=== PATIENT | male | born 1950 | race Caucasian/White ===

== ENCOUNTER 2021-09-27 12:58 | Outpatient (REF) | payer MEDICARE, SELFPAY ==
[2021-09-27 14:45] LABS: Hematocrit 40.3 % (42.0-52.0); Hemoglobin 12.8 g/dl (14.0-18.0); Mean Corpuscular HGB Conc 31.8 g/dl (31.0-36.0); Mean Corpuscular Hemoglobin 29.4 pg (27.0-33.0); Mean Corpuscular Volume 92.4 fL (80.0-98.0); Mean Platelet Volume 11.1 fL (9.4-12.4); Platelet Count 278 X10*3/uL (160-400); Red Blood Count 4.36 X10*6/uL (4.60-5.80); Red Cell Distribution Width 14.3 % (11.0-16.0); White Blood Count 7.6 X10*3/uL (4.8-10.8)
[2021-09-27 15:02] LABS: Prothrombin Time 10.9 SEC (9.9-13.0)
[2021-09-27 15:05] LABS: Anion Gap 12 (12-20); Blood Urea Nitrogen 18 mg/dL (9-16); Carbon Dioxide 25 mmol/L (22-29); Chloride 109 mmol/L (96-108); Estimated Glomerular Filt Rate > 60; Glucose Random 154 mg/dL (60-115); Potassium 4.7 mmol/L (3.3-5.1); Sodium 141 mmol/L (135-145)
== END 2021-09-27 12:59 | disposition home or self-care (01) ==
LOC: HO.LAB 12:58
PROVIDERS: Visit Provider Internal Medicine Cardiovascular Disease
DX: I20.8 Other forms of angina pectoris (principal)
CPT/HCPCS: 36415; 80048; 85027; 85610; 93005; 99202

== ENCOUNTER → 2021-09-28 11:23 | Outpatient (REF) | payer MEDICARE, SELFPAY ==
--- NOTE | 2021-09-28 11:27 | CA_ITS ---
Transthoracic Echocardiogram Patient (Last, First, Middle): Clyde Chahal C Gender: Male Date of : 1950 Age: 71 Procedure Date: 09/28/2021 Procedure Type: Transthoracic Echocardiogram Location: OP Height: 165.1 cm Weight: 90.72 kg BSA: 1.98 m2 Heart Rate: bpm BP: 128 / 80 mmHg Senior Specialist: Referring MD: Thomas Calles MD [employer] Member: Erci Augustin MD Symptoms: I20.8 - Other forms of angina pectoris Study Quality: Fair ECG Rhythm: Sinus Conclusions: - 1. Mildly reduced LV systolic function with LVEF of 45-50% with underlying regional wall motion abnormality in the RCA territory with impaired relaxation filling pattern with mild LVH 2. Mildly dilated left atrium 3. Normal cardiac valvular Doppler 4. Normal RV systolic pressure 5. No pericardial effusion Findings Left Ventricle Normal left ventricular cavity size. There is mildly increased left ventricular wall thickness. The left ventricular systolic function is mildly decreased. The visually estimated ejection fraction is between 45-50%. Spectral Doppler is indicative of an impaired relaxation filling pattern. Elevated left ventricular end diastolic pressure. E/E prime ratio is between 8 and 15 consistent with indeterminate filling pressures. Wall Motion Rest Echo Findings The mid inferoseptal segment is hypokinetic. The basal inferior and basal inferoseptal segments are akinetic. All other scored wall segments showed normal motion. Right Ventricle Normal right ventricular cavity size and systolic function. Atria The left atrium is mildly dilated. Interatrial shunt cannot be excluded. The right atrium is likely dilated. Aortic Valve There is mild calcification of the aortic valve. There is no aortic valve stenosis. There is no aortic valve regurgitation. Mitral Valve There is mild anterior and posterior mitral leaflet thickening. There is no mitral valve stenosis. Pulmonic Valve The pulmonic valve was not well visualized. Tricuspid Valve Normal tricuspid valve structure. There is trace tricuspid valve regurgitation. There is no evidence of pulmonary hypertension. Great Vessels All visible segments of the aorta are normal in size. The pulmonary artery was not well visualized. Venous The inferior vena cava is normal in size and collapses greater than 50% with inspiration. Pericardium/Pleural There is no evidence of pericardial effusion. Prior Study Comparison No prior study available for comparison. Measurements 2D Linear Measurements IVSd: 1.26 0.6-0.9/0.6-1.0 cm LVIDd: 4.75 3.9-5.3/4.2-5.9 cm LVIDd Index: 2.40 2.4-3.2/2.2-3.1 cm/m2 LVIDs: 3.01 2.0-3.6 cm LVPWd: 1.25 0.7-1.1 cm Ao Root: 3.60 2.1-3.5 cm LA Diam: 4.30 2.7-3.8/3.0-4.0 cm LAIDs Index: 2.17 1.5-2.3 cm/m2 LV Mass: 286.50 67-162/88-224 g LV Mass Index: 144.70 43-95/49-115 g/m2 LVOT Diam: 2.30 3.0+(-)1.3 cm 2D Systolic Function EF 4C: 47.50 >55% EF 2C: 47.50 >55% EF BiP: 47.20 >55% Mitral Valve MV Pk E: 0.87 MV PK A: 0.84 MV Decel Time: 189.00 E/A: 1.00 E'Lateral: 9.25 E'Medial: 8.81 E/E' Med: 9.90 E/E' Lat: 9.40 PHT: 55.00 MVA PHT: 4.00 Decel [place]: 4.61 Aortic Valve AoV Pk Michael: 1.71 AoV Mn Michael: 1.01 AoV VTI: 0.34 AoV Pk Grad: 12.00 Aov Mn Grad: 5.00 KRISTI Cont.VTI: 2.57 LVOT LVOT Pk Michael: 1.01 LVOT Mn Michael: 0.68 LVOT VTI: 0.21 LVOT Pk Grad: 4.00 LVOT Mn Grad: 2.00 LVOT Diam: 2.30 LVOT Area: 4.15 Diastolic Function MV Pk E: 0.87 MV Pk A: 0.84 E/A: 1.00 E'Medial: 8.81 E/E' Med: 9.90 E' Laterial: 9.25 E/E' Lat: 9.40 Tricuspid Valve TR Pk Michael: 1.70 TR Pk Grad: 12.00 RA Press: 3.00 RVSP: 15.00 Great Vessels Aorta Ao Root-2D: 3.60 2.0-3.7 cm Ao Asc: 3.50 2.1-3.4 cm Pulmonary Valve PV Pk Michael: 1.33 Peak PV Grad: 7.00 Updated in Other Vendor System with Status of Final Eric Augustin MD electronically signed on 09/29/2021 12:38:38 PM with status of Final
== END ==
LOC: HO.CARD 11:23
PROVIDERS: Visit Provider Internal Medicine Cardiovascular Disease
DX: I20.8 Other forms of angina pectoris (principal)
CPT/HCPCS: 93306

== ENCOUNTER → 2021-10-29 15:25 | Outpatient (BNVA) | payer MEDICARE, SELFPAY | PROVIDERS: Visit Provider Internal Medicine Cardiovascular Disease | DX: I20.8 Other forms of angina pectoris (principal) | CPT/HCPCS: 99212 ==

== ENCOUNTER → 2021-12-31 15:10 | Outpatient (BNVA) | payer MEDICARE, SELFPAY | PROVIDERS: Visit Provider Internal Medicine Cardiovascular Disease | DX: Z48.812 Encounter for surgical aftercare following surgery on the circulatory system (principal); I20.8 Other forms of angina pectoris; Z95.1 Presence of aortocoronary bypass graft; Z98.890 Other specified postprocedural states | CPT/HCPCS: 93005; 99212 ==

== ENCOUNTER 2022-09-02 13:08 | Outpatient (REF) | payer MEDICARE, SELFPAY ==
--- NOTE | ~2022-09-02 | US_ITS ---
EXAMINATION: US EXTRACRANIAL CAROTID DUPLEX, BILATERAL CLINICAL INFORMATION: Status post endarterectomy. COMPARISON: None TECHNIQUE: Real-time ultrasound and Doppler techniques (integrating B-mode 2-D vascular images, Doppler spectral analysis and color-flow Doppler imaging) were utilized to interrogate the extracranial carotid arteries, the vertebral arteries and proximal subclavian arteries bilaterally. The degree of stenosis is determined by criteria similar to NASCET. FINDINGS: RIGHT SIDE: 1. There is severe atherosclerotic plaque seen in the bifurcation/proximal ICA region. 2. The common carotid artery PSV proximally is 101 cm/s and distally 62 cm/s. 3. The proximal internal carotid artery is occluded. 4. The proximal external carotid artery PSV is 150 cm/s. 5. The vertebral artery shows antegrade flow. 6. The subclavian artery waveforms are normal. LEFT SIDE: 1. There is no atherosclerotic plaque seen in the bifurcation/proximal ICA region. 2. The common carotid artery PSV proximally is 93 cm/s and distally 121 cm/s. 3. The proximal internal carotid artery velocities are 97 cm/s systolic and 25 cm/s diastolic. 4. The proximal external carotid artery PSV is 128 cm/s. 5. The vertebral artery shows antegrade flow. 6. The subclavian artery waveforms are normal. US/US carotid duplex BI IMPRESSION: 1. 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 2. LEFT: The left ICA status post endarterectomy appears unremarkable with no significant stenosis seen (0-49%).
== END 2022-09-02 13:09 | disposition home or self-care (01) ==
LOC: HO.US 13:08
PROVIDERS: Visit Provider Internal Medicine Cardiovascular Disease
DX: I65.23 Occlusion and stenosis of bilateral carotid arteries (principal); I20.8 Other forms of angina pectoris; Z95.1 Presence of aortocoronary bypass graft; Z98.890 Other specified postprocedural states
CPT/HCPCS: 93005; 93880; 99212

== ENCOUNTER 2023-03-03 14:43 | Outpatient (AMB) | payer MEDICARE, SELFPAY ==
[2023-03-03 14:47] VITALS: BP 138/72; PULSE 74; O2SAT 89; BMI 35.4
--- NOTE | 2023-03-03 14:47 | A.OFFVIS_ITS ---
Intake Vital Signs 03/03/23 14:47 Height 5 ft 5 in Weight 212 lb 8.41 oz BMI 35.4 BP 138/72 Blood Pressure Location Rt brachial Position Sitting Pulse 74 Pulse Source Pulse Oximeter Pulse Oximetry (%) 89 L Oxygen Delivery Method Room Air Intake Visit Reasons: 6 mth fu after carotid ul Allergies No Known Allergies Allergy (Verified 03/03/23 14:49) Medication List - Last Reconciled 03/03/23 by Thomas Calles MD albuterol sulfate 90 mcg/actuation (Ventolin HFA) 2 puffs PO Q4H PRN amlodipine 5 mg PO DAILY aspirin (Adult Low Dose Aspirin) 81 mg PO DAILY atorvastatin 80 mg PO DAILY budesonide-formoterol 80-4.5 mcg/actuation (Symbicort) 2 puffs inhalation BID clopidogrel 75 mg PO DAILY escitalopram oxalate 5 mg PO DAILY furosemide 40 mg PO BID gabapentin 0 mg PO insulin glargine U-300 conc (Toujeo SoloStar U-300 Insulin) 180 units subcut BEDTIME insulin lispro (Humalog U-100 Insulin) 1 sliding scale dose subcut USEASDIRECTD magnesium oxide 1 tab AM, 2 tabs PM PO daily; metformin ER 500 mg PO DAILY metoprolol tartrate 25 mg PO BID multivitamin 1 tab PO DAILY nitroglycerin 0.4 mg sublingual ONCE omega [id number] oil 1,000 mg (120 mg-180 mg) (Fish Oil) 1 cap PO BID omeprazole 20 mg PO DAILY tiotropium bromide 2.5 mcg/actuation (Spiriva Respimat) 1 puff inhalation DAILY HPI HPI Comments History of Present Illness Details 72-year-old gentleman here for follow-up. He is status post bypass surgery performed on 12/05/[address] Mae. He had DOOLEY to LAD, great saphenous vein graft to om 1 and great saphenous vein graft to right acute marginal. Left carotid endarterectomy with patch angioplasty was also performed by Dr. Gonzalez at the same time. He has been doing well since then. He has no exertional chest discomfort shortness of breath. He has not been physically active and he has gained some weight. Blood pressure control is good. No bleeding concerns. Taking medications regularly. He saw Dr. Gonzalez in the office for carotid surveillance after endarterectomy. He was advised to have repeat ultrasound in 6 months and to follow up with us from here onward. 03/03/2023: He has been doing well on follow-up. He has no chest discomfort shortness of breath. He had carotid ultrasound performed at [facility] in December 2022 showing known occlusion of the right internal carotid artery. Left-sided was status post endarterectomy with stable velocities. His main complaint is peripheral neuropathy. It appears he is taking gabapentin right now. He is saying that this limits him along with lower back pain. His denying any cardiovascular symptoms otherwise. He had cholesterol testing done at [facility] in [place]. He will get the results sent to us. [facility] Surgical History H/O endarterectomy History of cardiac cath History of cataract surgery S/P CABG x 3 Family History Mother CAD (coronary artery disease) Alzheimer disease Father CAD (coronary artery disease) Diabetes Stroke Brother CAD (coronary artery disease) Myocarditis Sister CAD (coronary artery disease) Hyperthyroidism Social History Alcohol intake: never Patient Tobacco Use Status: Former Tobacco user Quit Date: 2011 Years Smoked: 35 +/- 2 packs a day e-Cigarette/Vaping Use: Currently Using Physical Exam Vital Signs: Last Vital Signs Pulse 74 03/03/23 14:47 BP 138/72 03/03/23 14:47 Pulse Ox 89 L 03/03/23 14:47 Oxygen Delivery Method Room Air 03/03/23 14:47 BMI result Body Mass Index 35.4 GENERAL APPEARANCE: in no acute distress, pleasant. NECK: Left carotid endarterectomy scar, left carotid bruit, no jugular venous distention. SKIN: no suspicious lesions, warm and dry. HEART: no murmurs, regular rate and rhythm. LUNGS: clear to auscultation bilaterally. ABDOMEN: soft, nontender. EXTREMITIES: Mild edema. PERIPHERAL PULSES: equal. NEUROLOGIC: No gross deficits, AAO X 3 Assessment & Plan Assessment & Plan (1) H/O endarterectomy: Comment: Left side December 05 2021 Code(s): Z98.890 - Other specified postprocedural states (2) S/P CABG x 3: Comment: December 05, 2021 Code(s): Z95.1 - Presence of aortocoronary bypass graft (3) Stable angina: Code(s): I20.8 - Other forms of angina pectoris Plan Pleasant 72-year-old gentleman who is here for follow-up. He is status post coronary artery bypass surgery as well as left carotid endarterectomy. Clinically stable and has no significant symptoms and has stable angina right now. He is on aspirin and Plavix and has been tolerating dual antiplatelet therapy well without any bleeding concerns. His peripheral edema likely due to amlodipine and gabapentin. He is limited due to peripheral neuropathy and back pain. I have advised him to stay as active as he can. No changes in medications. Thank you for allowing me to participate in the care of your patient. Please feel free to contact me if you have any questions. Coding Level of Care Code Est Pt Level 4 (22608) Diagnoses H/O endarterectomy Z98.890 S/P CABG x 3 Z95.1 Stable angina I20.8
== END 2023-03-03 15:12 | disposition home or self-care (01) ==
LOC: HO.HCS 14:43
PROVIDERS: Visit Provider Internal Medicine Cardiovascular Disease
DX: Z98.890 Other specified postprocedural states (principal); Z95.1 Presence of aortocoronary bypass graft; I20.8 Other forms of angina pectoris
CPT/HCPCS: 99214

== ENCOUNTER → 2023-03-03 14:43 | Outpatient (BNVA) | payer MEDICARE, SELFPAY | PROVIDERS: Visit Provider Internal Medicine Cardiovascular Disease | DX: I20.8 Other forms of angina pectoris (principal); Z98.890 Other specified postprocedural states; Z95.1 Presence of aortocoronary bypass graft | CPT/HCPCS: 99212 ==